=== PATIENT | male | born 1960 | race Caucasian/White ===

== ENCOUNTER 2020-08-28 22:13 | Emergency (ER) | payer OTHER ==
[2020-08-29] MEDS ORDERED: CLEOCIN300 MG PO (01:30)
[2020-08-29] MEDS ORDERED: DICLOFENAC SODI75 MG PO (01:30)
[2020-08-29 02:41] LABS: BUN 14 mg/dL (7-18); CHLORIDE 97 mmol/L (98-107); CO2 (BICARBONATE) 27 mmol/L (21-32); CREATININE 0.84 mg/dL (0.67-1.17); GLUCOSE 115 mg/dL (74-106); POTASSIUM 3.5 mmol/L (3.5-5.1)
[2020-08-29 02:42] LABS: C-REACTIVE PROTEIN > 18.00 mg/dL (<=0.90); LACTIC ACID 1.3 mmol/L (0.4-1.9)
[2020-08-29 02:51] LABS: BASOPHIL 0.2 % (0-2); EOSINOPHIL 0.3 % (0-5); HCT 38.4 % (42.0-52.0); HGB 12.9 g/dl (13.2-18.0); MCH 28.9 pg (25.0-31.0); MCHC 33.6 g/dL (32.0-36.0); MCV 86.1 fL (78.0-100.0); MONOCYTE 10.1 % (0-12); MPV 9.5 fL (6.0-9.5); NEUTROPHIL 78.9 % (41-80); NRBC 0; PLT 264 K/uL (150-400); RBC 4.46 M/uL (4.70-6.00); RDW 15.2 % (11.5-14.0); WBC 12.9 K/uL (4.0-10.5)
== END 2020-08-29 01:48 | disposition home or self-care (01) ==
LOC: FER 22:13
PROVIDERS: Emergency Medicine
DX: L03.116 Cellulitis of left lower limb (principal)
CPT/HCPCS: 36415; 80048; 83605; 85025; 85379; 86140; 87040; J1885